=== PATIENT | male | born 1945 | race Caucasian/White ===

== ENCOUNTER 2019-05-15 16:33 | Emergency (ER) | payer MEDICARE, BC ==
[2019-05-15 16:55] VITALS: BP 162/77
--- NOTE | 2019-05-15 21:49 | UC ---
Throat Pain/Nasal Darshan HPI - HPI Summary HPI Summary: 74 year old male, denies PMH, presents with cough, runny nose x 3 weeks. + cough from throat. Tried tussin X for bedtime symptoms, helps with sleeping. Did have sinus problems in past, ~ 2-3 days ago, was treated with abx and a cough medicine that helped him sleep. no fever, + chills. no GI symptoms. no weakness - History of Current Complaint Chief Complaint: UCRespiratory Stated Complaint: SINUS Time Seen by Provider: 05/15/19 17:20 Hx Obtained From: Patient Onset/Duration: Sudden Onset, Lasting Weeks - 2 Pain Intensity: 0 Pain Scale Used: 0-10 Numeric Cough: Nonproductive Associated Signs & Symptoms: Positive: Sinus Discomfort, Nasal Discharge - Allergies/Home Medications Allergies/Adverse Reactions: Allergies Allergy/AdvReac Type Severity Reaction Status Date / Time amoxicillin Allergy Unknown Verified 05/15/19 16:50 Reaction Details clavulanic acid Allergy Unknown Verified 05/15/19 16:50 [From Augmentin] Reaction Details Penicillins Allergy Unknown Verified 05/15/19 16:50 Reaction Details Home Medications: Home Medications Brimonidine 0.2% [Alphagan 0.2%] 1 drop TID 05/15/19 [History Confirmed 05/15/19 ] Finasteride TAB* [Proscar TAB*] 5 mg PO DAILY 05/15/19 [History Confirmed ] Fluticasone NASAL SPRAY 50MCG* [Flonase NASAL SPRAY 50MCG*] 2 spray BID [History Confirmed 05/15/19] Hydrochlorothiazide TAB* [Hydrodiuril TAB*] 2 tab DAILY 05/15/19 [History Confirmed 05/15/19] Latanoprost 0.005%* [Xalatan 0.005%*] 1 drop BOTH EYES QPM 05/15/19 [History Confirmed 05/15/19] LevoCETirizine TAB (NF) [Xyzal TAB (NF)] 5 mg PO DAILY 05/15/19 [History Confirmed 05/15/19] Lisinopril TAB* [Prinivil TAB*] 40 mg PO DAILY 05/15/19 [History Confirmed 05/15] amLODIPine TAB* [Norvasc 5 mg TAB*] 10 mg PO DAILY 05/15/19 [History Confirmed 05/15/19] PMH/Surg Hx/FS Hx/Imm Hx Previously Healthy: Yes - Surgical History Surgical History: None - Family History Known Family History: Positive: Non-Contributory - Social History Occupation: Retired Alcohol Use: Occasionally Substance Use Type: None Smoking Status (MU): Never Smoked Tobacco Review of Systems All Other Systems Reviewed And Are Negative: Yes Constitutional: Positive: Chills, Fatigue ENT: Positive: Nasal Discharge, Sinus Congestion, Sinus Pain/Tenderness Respiratory: Positive: Cough Gastrointestinal: Positive: Negative Neurovascular: Positive: Negative Musculoskeletal: Positive: Negative Neurological: Positive: Negative Is Patient Immunocompromised?: No Physical Exam Triage Information Reviewed: Yes Appearance: Well-Appearing, No Pain Distress, Well-Nourished Vital Signs: Initial Vital Signs Temp 97.2 F 05/15/19 16:51 Pulse 86 05/15/19 16:51 Resp 16 05/15/19 16:51 BP 162/77 05/15/19 16:51 Pulse Ox 96 05/15/19 16:51 Vital Signs Reviewed: Yes Eyes: Positive: Conjunctiva Clear ENT: Positive: Pharynx normal, TMs normal, Sinus tenderness - b/l frontal, submand. Negative: Pharyngeal erythema, TM bulging, TM dull, TM red, Tonsillar swelling, Tonsillar exudate, Uvula midline Neck: Positive: Supple, Nontender, No Lymphadenopathy. Negative: Nuchal Rigidity, Enlarged Nodes @ Respiratory: Positive: Chest non-tender, Lungs clear, Normal breath sounds, No respiratory distress, No accessory muscle use. Negative: Respiratory distress, Crackles, Rhonchi, Stridor, Wheezing Cardiovascular: Positive: RRR, No Murmur Neurological Exam: Normal Throat Pain/Nasal Course/Dx - Course Course Of Treatment: SInusitis: - ANtibiotics as directed daily for 5 days - continue over the counter medications for symptoms - Motrin/ tylenol as needed for pain, fever - Increase fluid intake while taking antibiotics - Follow up with primary physician within 2-3 days if no improvement - Differential Dx/Diagnosis Differential Diagnosis/HQI/PQRI: Sinusitis, Tonsillitis, URI Provider Diagnosis: Sinusitis Discharge ED - Sign-Out/Discharge Documenting (check all that apply): Patient Departure All imaging exams completed and their final reports reviewed: No Studies - Discharge Plan Condition: Good Disposition: HOME Prescriptions: Azithromyxin BELTRAN (NF) [Z-Beltran (Zithromax) 250 mg tabs #6] 2 tab PO .TODAY, THEN 1 DAILY #6 tab Patient Education Materials: Sinusitis (ED) Referrals: Antonia Garrido PA [Primary Care Provider] - Additional Instructions: - ANtibiotics as directed daily for 5 days - continue over the counter medications for symptoms - Motrin/ tylenol as needed for pain, fever - Increase fluid intake while taking antibiotics - Follow up with primary physician within 2-3 days if no improvement - Billing Disposition and Condition Condition: GOOD Disposition: Home
== END 2019-05-15 17:48 | disposition home or self-care (01) ==
LOC: UCCORT 16:33
DX: J32.9 Chronic sinusitis, unspecified (principal); J39.2 Other diseases of pharynx; Z88.1 Allergy status to other antibiotic agents; Z88.0 Allergy status to penicillin
CPT/HCPCS: 99202; G0463